=== PATIENT | male | born 1995 ===

== ENCOUNTER 2018-05-01 12:36 | Emergency (ER) | payer OTHER ==
[2018-05-01 12:41] VITALS: BP 141/87; PULSE 102; RESP 17; TEMP 98.3; O2SAT 97
--- NOTE | 2018-05-01 13:01 | ED PDOC ---
HPI: Trauma/Fall - HPI Time Seen by Provider: 05/01/18 12:41 Chief Complaint (Nursing): Trauma Chief Complaint (Provider): Trauma History Per: Patient History/Exam Limitations: no limitations Onset/Duration Of Symptoms: Hrs Additional Complaint(s): Morgan Díaz is a 22 year old male with no past medical history who is presenting to the ED via EMS for evaluation of injury sustained during a fall at work just prior to arrival. Patient states that he slipped on wet floor and landed on his butt and right forearm. He complains of pain to right side of the body localized to the right forearm and back. Patient denies any loss of consciousness and offers no other medical complaints at this time. PMD: none provided Past Medical History Reviewed: Historical Data, Nursing Documentation, Vital Signs Vital Signs: Last Vital Signs Temp 98.3 F 05/01/18 12:38 Pulse 102 H 05/01/18 12:38 Resp 17 05/01/18 12:38 BP 141/87 05/01/18 12:38 Pulse Ox 97 05/01/18 12:38 - Medical History PMH: No Chronic Diseases - Surgical History Surgical History: No Surg Hx - Family History Family History: States: Unknown Family Hx - Social History Current smoker - smoking cessation education provided: Yes Alcohol: Social Drugs: Denies - Home Medications Home Medications: Ambulatory Orders Medication Instructions Recorded Cyclobenzaprine [Cyclobenzaprine 10 mg PO Q8H PRN #12 tab 05/01/18 HCl] - Allergies Allergies/Adverse Reactions: Allergies Allergy/AdvReac Type Severity Reaction Status Date / Time ibuprofen [From Motrin] Allergy SHORTNESS Verified 05/01/18 12:37 OF BREATH Review of Systems ROS Statement: Except As Marked, All Systems Reviewed And Found Negative Musculoskeletal: Positive for: Arm Pain, Back Pain Neurological: Negative for: Other (loss of consciousness) Physical Exam - Reviewed Nursing Documentation Reviewed: Yes Vital Signs Reviewed: Yes - Physical Exam Appears: Positive for: Non-toxic, No Acute Distress Head Exam: Positive for: ATRAUMATIC, NORMAL INSPECTION, NORMOCEPHALIC Skin: Positive for: Normal Color, Warm, DRY Neck: Positive for: Normal, Painless ROM, Supple Cardiovascular/Chest: Positive for: Regular Rate, Rhythm. Negative for: Bradycardia, Tachycardia Respiratory: Positive for: Normal Breath Sounds. Negative for: Accessory Muscle Use, Respiratory Distress Back: Positive for: Normal Inspection, Other (lower midline back tenderness, no erythema, no warmth, no deformity). Negative for: L CVA Tenderness, R CVA Tenderness, Vertebral Tenderness Extremity: Positive for: Normal ROM, Tenderness ((+) LS tenderness ). Negative for: Deformity, Swelling, Other (No ecchymosis) - ECG O2 Sat by Pulse Oximetry: 97 (RA) Pulse Ox Interpretation: Normal Medical Decision Making Medical Decision Making: Time: 12:54 Plan: --Morphine 2 mg IM --X-ray right forearm --X-ray LS spine AP/LAT No acute fracture on LS XR. Forearm XR without fracture or dislocation. Scribe Attestation: Documented by Adilene Kitchen, acting as a scribe for Julienne Weaver PA-C. Provider Scribe Attestation: All medical record entries made by the Scribe were at my direction and personally dictated by me. I have reviewed the chart and agree that the record accurately reflects my personal performance of the history, physical exam, medical decision making, and the department course for this patient. I have also personally directed, reviewed, and agree with the discharge instructions and disposition. Disposition - Clinical Impression Clinical Impression: Fall, Back pain, Right forearm pain - Disposition Disposition Time: 14:02 Condition: STABLE Prescriptions: Cyclobenzaprine [Cyclobenzaprine HCl] 10 mg PO Q8H PRN #12 tab PRN Reason: Muscle Spasm Instructions: Muscle and Bone Pain (DC) Forms: [employer] ([place])
--- NOTE | 2018-05-01 13:53 | RAD ---
Date of service: 05/01/2018 PROCEDURE: Radiographs of the Lumbar Spine. HISTORY: back pain s/p fall COMPARISON: No prior. FINDINGS: BONES: Normal alignment. No listhesis. No fracture. DISC SPACES: Unremarkable. OTHER FINDINGS: None. IMPRESSION: Unremarkable radiographs of the lumbar spine.
--- NOTE | 2018-05-01 13:53 | RAD ---
PROCEDURE: Radiographs of the Right Forearm HISTORY: pain, fall COMPARISON: None available. TECHNIQUE: Frontal and lateral views obtained. FINDINGS: BONES: No fracture or destructive lesion. JOINT SPACES: Unremarkable. OTHER FINDINGS: None. IMPRESSION: Unremarkable radiographs of the right forearm.
== END 2018-05-01 14:25 | disposition home or self-care (01) ==
LOC: H.ER 12:36
DX: M54.5 Low back pain (principal); S59.911A Unspecified injury of right forearm, initial encounter; F17.200 Nicotine dependence, unspecified, uncomplicated; Z88.6 Allergy status to analgesic agent; W01.0XXA Fall on same level from slipping, tripping and stumbling without subsequent striking against object, initial encounter
CPT/HCPCS: 72100; 73090; 96372; 99285; J2270